=== PATIENT | female | born 1960 | race Caucasian/White ===

== ENCOUNTER 2018-01-23 20:38 | Emergency (ER) | payer OTHER ==
[2018-01-23] MEDS ORDERED: HYDROmorphONE/DILAUDID 2 MG/ML INJ IVP ONE (21:01)
[2018-01-23] MEDS ORDERED: NS 1,000 ML IV ONE (21:01)
[2018-01-23] MEDS ORDERED: HYDROmorphONE/DILAUDID 1 MG/ML INJ ONE (21:04)
--- NOTE | 2018-01-23 21:25 | CPEKG ---
Heart Rate: 57 RR Interval: 1053 P-R Interval: 132 QRSD Interval: 90 QT Interval: 428 QTC Interval: 417 P [place]: 29 QRS [place]: 68 T Wave [place]: 36 EKG Severity - NORMAL ECG - EKG Impression: SINUS RHYTHM Electronically Signed By: Juana Brooks 23-Jan-2018 23:31:51
[2018-01-23 21:34] LABS: PLATELET COUNT 307 10^3/uL (150-400)
[2018-01-23] MEDS ORDERED: ONDANSETRON 4 MG/2 ML VIAL IVP ONE (23:27)
[2018-01-23] MEDS ORDERED: ONDANSETRON 4 MG/2 ML VIAL ONE (23:28)
[2018-01-23] MEDS ORDERED: DICYCLOMINE 10 MG CAP PO ONE (23:28)
[2018-01-23] MEDS ORDERED: KETOROLAC 30 MG/1 ML SDV IVP ONE (23:31)
[2018-01-23 23:37] VITALS: BP 123/77
--- NOTE | 2018-01-24 00:21 | EDPHY ---
H & P Stated Complaint: epigastric pain - Personal History Current Tetanus/Diphtheria Vaccine: Unsure Current Tetanus Diphtheria and Acellular Pertussis (TDAP): Unsure Tetanus Vaccine Date: within 10 years - Medical/Surgical History Hx Asthma: No Hx Chronic Respiratory Disease: No Hx Diabetes: No Hx Cardiac Disease: No Hx Renal Disease: No Hx Cirrhosis: No Hx Alcoholism: No Hx HIV/AIDS: No Hx Splenectomy or Spleen Trauma: No Other PMH: denies. surg-Lt. wrist, neck surg to remove growth - Social History Smoking Status: Never smoked Time Seen by Provider: 01/23/18 20:55 HPI/ROS: Chief complaint: Abdominal pain History of present illness: This is a 57-year-old female who presents to the emergency department for evaluation of abdominal pain. She reports she has a long history of mild chronic abdominal pain in the epigastric and right upper quadrant. It has been a persistent soreness she has had for years. However, over the last day the soreness has worsened. She states the pain radiates to her back. She denies precipitating factors. She denies alleviating factors. She does report associated loose stools. She denies other associated signs or symptoms including no fevers, no nausea, vomiting, no urinary symptoms, no chest pain, cough or shortness of breath. Review of systems: A 10 point review of systems was obtained and other than described above was negative (Gómez Liao) - Physical Exam Exam: General Appearance: Alert, nontoxic. Eyes: Pupils equal and round no pallor or injection. ENT, Mouth: Mucous membranes moist. Respiratory: There are no retractions, lungs are clear to auscultation. Cardiovascular: Regular rate and rhythm. Gastrointestinal: Bowel sounds are normal. Abdomen is soft, nondistended. Mild tenderness in epigastric and right upper quadrant. No Martínez sign. No McBurney's point tenderness. No guarding. No other peritoneal signs. Neurological: Alert and oriented x4. Strength and sensation intact and symmetrical. Skin: Warm and dry, no rashes. Musculoskeletal: Neck is supple non tender. Extremities are symmetrical, full range of motion. Psychiatric: Patient is oriented X 3, there is no agitation. (Gómez Liao) Constitutional: Initial Vital Signs Temperature (C) 36.6 C 01/23/18 20:39 Heart Rate 65 01/23/18 20:39 Respiratory Rate 16 01/23/18 20:39 Blood Pressure 114/71 01/23/18 20:39 O2 Sat (%) 98 01/23/18 20:39 O2 Delivery Mode Room Air O2 (L/minute) 98 Allergies/Adverse Reactions: No Known Allergies Allergy (Unverified 04/15/15 18:15) Home Medications: Medication Instructions Recorded NK [No Known Home Meds] 04/15/15 Medical Decision Making - Diagnostics Imaging: Discussed imaging studies w/ sales operations Radiologist ED Course/Re-evaluation: Patient is discussed with my secondary supervising physician Dr. Juana Brooks. Patient presents to the emergency department reporting increasing chronic abdominal pain in her epigastric and right upper quadrant. She is nontoxic. Vital signs are stable. Mild tenderness on abdominal exam otherwise unremarkable. Lab studies are unremarkable. Urinalysis does reveal a few findings concerning for infection although she denies any urinary symptoms. Certainly this could be contaminant. Urine cultures obtained. Ultrasound is suggestive of a stone in the neck of the gallbladder. She has been symptomatically treated with Dilaudid with improvement in pain but states she does not like the way the medication makes her feel. She has been treated with Toradol with improvement in pain. She was given Bentyl and placed on the right side as well as given Zofran. She is feeling much better. She is tolerating oral challenges. She will be discharged home. Home care is discussed. Return precautions are given. Patient voiced understanding and agreement with plan. ( Gómez Liao) The patient was evaluated and managed by the physician social worker assistant. I have reviewed this chart and I agree with the findings and plan of care as documented , as indicated by my signature. I am the secondary supervising physician. ( Juana Brooks) Differential Diagnosis: Included but not limited to gastritis, gastroenteritis, biliary tract disease, pancreatitis, colitis, urinary tract disease, unlikely pulmonary, or cardiac in nature (Gómez Liao) - Data Points Laboratory Results: Laboratory Results 01/23/18 20:56 01/23/18 20:56 Medications Given: Discontinued Medications Dicyclomine HCl (Bentyl) 10 mg PO EDNOW ONE Stop: 01/23/18 23:29 Last Admin: 01/23/18 23:32 Dose: 10 mg Hydromorphone HCl (Dilaudid) 0.5 mg IVP EDNOW ONE Stop: 06/01/18 21:02 Last Admin: 01/23/18 21:07 Dose: 0.5 mg Sodium Chloride (Ns) 1,000 mls @ 0 mls/hr IV EDNOW ONE; Wide Open PRN Reason: Protocol Stop: 01/23/18 21:02 Last Admin: 01/23/18 21:06 Dose: 1,000 mls Ketorolac Tromethamine (Toradol) 30 mg IVP EDNOW ONE Stop: 01/23/18 23:32 Last Admin: 01/23/18 23:35 Dose: 30 mg Ondansetron HCl (Zofran) 4 mg IVP EDNOW ONE Stop: 01/23/18 23:28 Last Admin: 01/23/18 23:31 Dose: 4 mg Departure - Departure Disposition: Home, Routine, Self-Care Clinical Impression: Abdominal pain Qualifiers: Abdominal location: right upper quadrant Qualified Code(s): R10.11 - Right upper quadrant pain Condition: Good Instructions: Acute Abdominal Pain (ED) Additional Instructions: Follow-up with a primary care doctor and surgeon for continued evaluation and care If symptoms worsen or new symptoms develop return to the emergency room for recheck Referrals: NONE *PRIMARY CARE P,. [Primary Care Provider] - As per Instructions [facility],. [Clinic] - As per Instructions Morgan Womack MD [Medical Doctor] - As per Instructions
== END 2018-01-24 00:32 | disposition home or self-care (01) ==
DX: R10.11 Right upper quadrant pain (principal); E86.9 Volume depletion, unspecified
CPT/HCPCS: 96374; J1170; J1885; J2405

== ENCOUNTER 2018-01-25 06:55 | Observation (INO) | payer OTHER ==
--- NOTE | 2018-01-25 07:18 | EDPHY ---
H & P Stated Complaint: Abd pain Time Seen by Provider: 01/25/18 07:18 - Personal History Current Tetanus Diphtheria and Acellular Pertussis (TDAP): Yes Tetanus Vaccine Date: within 10 years - Medical/Surgical History Hx Asthma: No Hx Chronic Respiratory Disease: No Hx Diabetes: No Hx Cardiac Disease: No Hx Renal Disease: No Hx Cirrhosis: No Hx Alcoholism: No Hx HIV/AIDS: No Hx Splenectomy or Spleen Trauma: No Other PMH: denies. surg-Lt. wrist, neck surg to remove growth - Social History Smoking Status: Never smoked Constitutional: Initial Vital Signs Temperature (C) 36.4 C 01/25/18 06:56 Heart Rate 57 L 01/25/18 06:56 Respiratory Rate 20 01/25/18 06:56 Blood Pressure 133/64 H 01/25/18 06:56 O2 Sat (%) 92 01/25/18 06:56 O2 Delivery Mode Room Air Allergies/Adverse Reactions: No Known Allergies Allergy (Verified 01/25/18 09:56) Home Medications: Medication Instructions Recorded NK [No Known Home Meds] 01/25/18 Medical Decision Making - Diagnostics Imaging Results: Imaging Impressions Abdomen Ultrasound 01/25/18 07:31 Impression: 1. Mild hepatic steatosis. 2. Suboptimal assessment of the pancreatic head secondary to overlying bowel gas. 3. There are a couple of tiny gallbladder polyps present. There is no convincing evidence of cholelithiasis. There is a positive sonographic Martínez sign, but no evidence of gallbladder wall thickening or pericholecystic fluid. If there is further clinical concern, a HIDA scan could be considered. Findings were discussed with Santiago Estes MD at 9:03, on 01/25/2018. Imaging: Discussed imaging studies w/ stabber Radiologist, I viewed and interpreted images myself ED Course/Re-evaluation: CHIEF COMPLAINT: Abdominal pain, nausea, vomiting HISTORY OF PRESENT ILLNESS: The patient is a 57 y/o female complaining of abdominal pain, nausea, and vomiting. On 01/23/18, 2 days ago, she was seen in this emergency department and diagnosed with a gallstone in the neck of the gallbladder. They discharged her home with an antispasmodic, which worked well until her pain returned last night. She is currently nauseous and has right upper quadrant pain. Denies chest pain, shortness of breath, urinary or bowel complaints, numbness, paresthesias. REVIEW OF SYSTEMS: A 10 point review of systems was performed and is negative with the exception of the elements mentioned in the history of present illness. PHYSICAL EXAM: HR, BP, O2 Sat, RR. Temp noted General Appearance: Alert, well hydrated, appropriate, and non-toxic appearing. Head: Atraumatic without scalp tenderness or obvious injury Eyes: Pupils equal, round, reactive to light and accommodation, EOMI, no trauma , no injection. Ears: Clear bilaterally, no perforation, normal landmarks Nose: Atraumatic, no rhinorrhea, clear. Throat: Mucus membranes moist. Neck: Supple, nontender, no lymphadenopathy. Respiratory: No retractions, no distress, no wheezes, and no accessory muscle use. Lungs are clear to auscultation bilaterally. Cardiovascular: Regular rate and rhythm, no murmurs, rubs, or gallops. Good capillary refill all extremities. Gastrointestinal: Positive Martínez's sign. Abdomen is soft, non-distended, no masses, no rebound, no guarding, no peritoneal signs. Musculoskeletal: Normal active ROM of all extremities, atraumatic. Neurological: Alert, appropriate, and interactive. Nonfocal neuro. Skin: No rashes, good turgor, no nodules on palpation. Past medical history: Gallstones Past surgical history: Left wrist surgery, neck surgery Family history: Denies Social history: at bedside, lives in [place], employed DIAGNOSTICS/PROCEDURES/CRITICAL CARE TIME: Gallbladder US: Possible gallstone, polyp or sludge in the neck of the gallbladder. DIFFERENTIAL DIAGNOSIS: The differential diagnosis for the patient's abdominal pain included but was not limited to ovarian cyst, pelvic inflammatory disease, ovarian torsion, urinary tract infection, ectopic , cholecystitis, and appendicitis. MEDICAL DECISION MAKING: The patient is a 57 y/o female presenting with abdominal pain, nausea, and vomiting. On 01/23/18, 2 days ago, she was seen in this emergency department and diagnosed with a possible gallstone in the neck of the gallbladder. On her physical exam she has a positive Martínez's sign. Gallbladder US ordered; 1L IV NS , 30mg IV Toradol, 4mg IV Zofran, and 0.5mg IV Dilaudid administered. 0800: Patient's labs are normal, imaging is still pending at this time. 0904: Spoke with Dr. Chavez, radiologist, there is evidence of a possible gallstone, polyp or sludge in the neck of the gallbladder. General surgery will be called to discuss a cholecystectomy; patient is comfortable with plan for surgery. 0909: Consulted with Dr. Aguilar, general surgeon, regarding this patient. He agrees to consult on this patient as the primary physician and take her to the OR for a cholecystectomy. 0932: Reassessed patient and discussed laboratory and imaging findings. - Data Points Laboratory Results: Laboratory Results 01/25/18 07:28 01/25/18 07:28 01/25/18 01/25/18 01/25/18 09:20 07:28 07:28 WBC RBC Hgb Hct MCV MCH MCHC RDW Plt Count MPV Neut % (Auto) Lymph % (Auto) [place] % (Auto) Eos % (Auto) Baso % (Auto) Nucleat RBC Rel Count Absolute Neuts (auto) Absolute Lymphs (auto) Absolute Monos (auto) Absolute Eos (auto) Absolute Basos (auto) Absolute Nucleated RBC Immature Gran % Immature Gran # PT 13.0 SEC SEC (12.0-15.0) INR 0.96 (0.83-1.16) APTT 25.2 SEC SEC (23.0-38.0) Sodium 144 mEq/L mEq/L (135-145) Potassium 4.6 mEq/L mEq/L (3.3-5.0) Chloride 106 mEq/L mEq/L (97-110) Carbon Dioxide 29 mEq/l mEq/l (22-31) Anion Gap 9 mEq/L mEq/L (8-16) BUN 18 mg/dL mg/dL (7-23) Creatinine 0.7 mg/dL mg/dL (0.6-1.0) Estimated GFR > 60 Glucose 98 mg/dL mg/dL (70-100) Calcium 9.6 mg/dL mg/dL (8.5-10.4) Total Bilirubin 0.8 mg/dL mg/dL (0.1-1.4) Conjugated Bilirubin 0.4 mg/dL mg/dL (0.0-0.5) Unconjugated Bilirubin 0.4 mg/dL mg/dL (0.0-1.1) AST 30 IU/L IU/L (14-46) ALT 41 IU/L IU/L (9-52) Alkaline Phosphatase 58 IU/L IU/L (38-126) Total Protein 7.0 g/dL g/dL (6.3-8.2) Albumin 4.1 g/dL g/dL (3.5-5.0) Lipase 139 IU/L IU/L (23-300) Urine Color YELLOW Urine Appearance CLEAR Urine pH 5.0 (5.0-7.5) Ur Specific [place] 1.016 (1.002-1.030) Urine Protein NEGATIVE (NEGATIVE) Urine Ketones NEGATIVE (NEGATIVE) Urine Blood 1+ H (NEGATIVE) Urine Nitrate NEGATIVE (NEGATIVE) Urine Bilirubin NEGATIVE (NEGATIVE) Urine Urobilinogen NEGATIVE EU EU (0.2-1.0) Ur Leukocyte Esterase NEGATIVE (NEGATIVE) Urine RBC 1-3 /hpf /hpf (0-3) Urine WBC 3-5 /hpf H /hpf (0-3) Ur Epithelial Cells TRACE /lpf /lpf (NONE-1+) Urine Mucus TRACE /lpf /lpf (NONE-1+) Urine Glucose NEGATIVE (NEGATIVE) 01/25/18 07:28 WBC 5.46 10^3/uL 10^3/uL (3.80-9.50) RBC 4.51 10^6/uL 10^6/uL (4.18-5.33) Hgb 13.7 g/dL g/dL (12.6-16.3) Hct 41.9 % % (38.0-47.0) MCV 92.9 fL fL (81.5-99.8) MCH 30.4 pg pg (27.9-34.1) MCHC 32.7 g/dL g/dL (32.4-36.7) RDW 12.9 % % (11.5-15.2) Plt Count 257 10^3/uL 10^3/uL (150-400) MPV 9.9 fL fL (8.7-11.7) Neut % (Auto) 63.0 % % (39.3-74.2) Lymph % (Auto) 28.4 % % (15.0-45.0) [place] % (Auto) 7.1 % % (4.5-13.0) Eos % (Auto) 1.1 % % (0.6-7.6) Baso % (Auto) 0.2 % L % (0.3-1.7) Nucleat RBC Rel Count 0.0 % % (0.0-0.2) Absolute Neuts (auto) 3.44 10^3/uL 10^3/uL (1.70-6.50) Absolute Lymphs (auto) 1.55 10^3/uL 10^3/uL (1.00-3.00) Absolute Monos (auto) 0.39 10^3/uL 10^3/uL (0.30-0.80) Absolute Eos (auto) 0.06 10^3/uL 10^3/uL (0.03-0.40) Absolute Basos (auto) 0.01 10^3/uL L 10^3/uL (0.02-0.10) Absolute Nucleated RBC 0.00 10^3/uL 10^3/uL (0-0.01) Immature Gran % 0.2 % % (0.0-1.1) Immature Gran # 0.01 10^3/uL 10^3/uL (0.00-0.10) PT INR APTT Sodium Potassium Chloride Carbon Dioxide Anion Gap BUN Creatinine Estimated GFR Glucose Calcium Total Bilirubin Conjugated Bilirubin Unconjugated Bilirubin AST ALT Alkaline Phosphatase Total Protein Albumin Lipase Urine Color Urine Appearance Urine pH Ur Specific [place] Urine Protein Urine Ketones Urine Blood Urine Nitrate Urine Bilirubin Urine Urobilinogen Ur Leukocyte Esterase Urine RBC Urine WBC Ur Epithelial Cells Urine Mucus Urine Glucose Medications Given: Discontinued Medications Hydromorphone HCl (Dilaudid) 0.5 mg IVP EDNOW ONE Stop: 01/25/18 07:26 Last Admin: 01/25/18 07:31 Dose: 0.5 mg Sodium Chloride (Ns) 1,000 mls @ 0 mls/hr IV EDNOW ONE; Wide Open PRN Reason: Protocol Stop: 01/25/18 07:26 Last Admin: 01/25/18 07:30 Dose: 1,000 mls Ketorolac Tromethamine (Toradol) 30 mg IVP EDNOW ONE Stop: 01/25/18 07:26 Last Admin: 01/25/18 07:30 Dose: 30 mg Ondansetron HCl (Zofran) 4 mg IVP EDNOW ONE Stop: 01/25/18 07:26 Last Admin: 01/25/18 07:30 Dose: 4 mg Departure - Departure Disposition: To OP Cath/Surgery Clinical Impression: Gallstone Qualifiers: Cholecystitis presence: with cholecystitis Cholecystitis acuity: acute Biliary obstruction: without biliary obstruction Qualified Code(s): K80.00 - Calculus of gallbladder with acute cholecystitis without obstruction Condition: Fair Referrals: NONE *PRIMARY CARE P,. [Primary Care Provider] - As per Instructions Report Scribed for: Santiago Estes Report Scribed by: Nadia Ricketts Date of Report: 01/25/18 Time of Report: 07:24
[2018-01-25] MEDS ORDERED: NS 1,000 ML IV ONE (07:25)
[2018-01-25] MEDS ORDERED: HYDROmorphONE/DILAUDID 2 MG/ML INJ IVP ONE (07:25)
[2018-01-25] MEDS ORDERED: ONDANSETRON 4 MG/2 ML VIAL ONE (07:25)
[2018-01-25] MEDS ORDERED: KETOROLAC 30 MG/1 ML SDV IVP ONE (07:25)
[2018-01-25] MEDS ORDERED: ONDANSETRON 4 MG/2 ML VIAL IVP ONE (07:25)
[2018-01-25] MEDS ORDERED: HYDROmorphONE/DILAUDID 1 MG/ML INJ ONE (07:29)
[2018-01-25 07:34] LABS: PLATELET COUNT 257 10^3/uL (150-400)
[2018-01-25 07:42] LABS: INR 0.96 (0.83-1.16)
[2018-01-25] MEDS ORDERED: BUPIVACAINE 0.25% 30 ML SDV ONE (11:00)
[2018-01-25] MEDS ORDERED: EPINEPHrine 1 MG/ML INJ ONE (11:01)
[2018-01-25] MEDS ORDERED: ceFAZolin 2 GM/SWFI 2 GM/20 ML SYR IVP ONE (11:07)
--- NOTE | 2018-01-25 11:11 | PDGENHP ---
History and Physical - Chief Complaint RUQ pain - History of Present Illness Patient her Ricardo for first episode of RUQ pain. Had workup at that time which showed likely polyp adjacent to cystic duct. Was medicated here, discharged home and still didn'd feel too well. Pain this AM after getting up, worse than initial pain. Pain is RUQ, epigastric with radiation to marnie back 9/10 at its worst, better with narcotics. No nausea, no fevers. History Information - Allergies/Home Medication List Allergies/Adverse Reactions: No Known Allergies Allergy (Verified 01/25/18 09:56) Home Medications: NK [No Known Home Meds] 01/25/18 [Last Taken Unknown] I have personally reviewed and updated: family history, medical history, social history, surgical history - Past Medical History no pertinent PMH - Surgical History Additional surgical history: no abdominal surgeries - Social History Smoking Status: Never smoked Alcohol Use: Rarely Drug Use: None Additional social history: teacher, ultra-marathoner Review of Systems Review of Systems: ROS: 10pt was reviewed & negative except for what was stated in HPI & below Physical Exam Physical Exam: Temp Pulse Resp BP Pulse Ox 37.2 C 64 16 106/64 92 01/25/18 10:50 01/25/18 10:50 01/25/18 10:50 01/25/18 10:50 01/25/18 10:50 Constitutional: no apparent distress, appears nourished, not in pain Eyes: PERRL, anicteric sclera, EOMI Ears, Nose, Mouth, Throat: moist mucous membranes, hearing normal, ears appear normal, no oral mucosal ulcers Cardiovascular: regular rate and rhythym, no murmur, rub, or gallop, No edema Respiratory: no respiratory distress, no rales or rhonchi, clear to auscultation Gastrointestinal: normoactive bowel sounds, other (TTP in the RUQ, negative [place]) Genitourinary: no bladder fullness, no bladder tenderness Skin: warm, normal color, no rashes or abrasions, no fluctuance, no induration, No mottled Musculoskeletal: full muscle strength, no muscle tenderness, normal joint ROM, no joint effusions Psychiatric: interacting appropriately, not anxious, not encephalopathic, thought process linear Lymph, Heme, Immunologic: no cervical LAD, no supraclavicular LAD Lab Data & Imaging Review 01/25/18 07:28 01/25/18 07:28 WBC 5.46 10^3/uL (3.80-9.50) 01/25/18 07:28 RBC 4.51 10^6/uL (4.18-5.33) 01/25/18 07:28 Hgb 13.7 g/dL (12.6-16.3) 01/25/18 07:28 Hct 41.9 % (38.0-47.0) 01/25/18 07:28 MCV 92.9 fL (81.5-99.8) 01/25/18 07:28 MCH 30.4 pg (27.9-34.1) 01/25/18 07:28 MCHC 32.7 g/dL (32.4-36.7) 01/25/18 07:28 RDW 12.9 % (11.5-15.2) 01/25/18 07:28 Plt Count 257 10^3/uL (150-400) 01/25/18 07:28 MPV 9.9 fL (8.7-11.7) 01/25/18 07:28 Neut % (Auto) 63.0 % (39.3-74.2) 01/25/18 07:28 Lymph % (Auto) 28.4 % (15.0-45.0) 01/25/18 07:28 [place] % (Auto) 7.1 % (4.5-13.0) 01/25/18 07:28 Eos % (Auto) 1.1 % (0.6-7.6) 01/25/18 07:28 Baso % (Auto) 0.2 % (0.3-1.7) L 01/25/18 07:28 Nucleat RBC Rel Count 0.0 % (0.0-0.2) 01/25/18 07:28 Absolute Neuts (auto) 3.44 10^3/uL (1.70-6.50) 01/25/18 07:28 Absolute Lymphs (auto) 1.55 10^3/uL (1.00-3.00) 01/25/18 07:28 Absolute Monos (auto) 0.39 10^3/uL (0.30-0.80) 01/25/18 07:28 Absolute Eos (auto) 0.06 10^3/uL (0.03-0.40) 01/25/18 07:28 Absolute Basos (auto) 0.01 10^3/uL (0.02-0.10) L 01/25/18 07:28 Absolute Nucleated RBC 0.00 10^3/uL (0-0.01) 01/25/18 07:28 Immature Gran % 0.2 % (0.0-1.1) 01/25/18 07:28 Immature Gran # 0.01 10^3/uL (0.00-0.10) 01/25/18 07:28 PT 13.0 SEC (12.0-15.0) 01/25/18 07:28 INR 0.96 (0.83-1.16) 01/25/18 07:28 APTT 25.2 SEC (23.0-38.0) 01/25/18 07:28 Sodium 144 mEq/L (135-145) 01/25/18 07:28 Potassium 4.6 mEq/L (3.3-5.0) 01/25/18 07:28 Chloride 106 mEq/L (97-110) 01/25/18 07:28 Carbon Dioxide 29 mEq/l (22-31) 01/25/18 07:28 Anion Gap 9 mEq/L (8-16) 01/25/18 07:28 BUN 18 mg/dL (7-23) 01/25/18 07:28 Creatinine 0.7 mg/dL (0.6-1.0) 01/25/18 07:28 Estimated GFR > 60 01/25/18 07:28 Glucose 98 mg/dL (70-100) 01/25/18 07:28 Calcium 9.6 mg/dL (8.5-10.4) 01/25/18 07:28 Total Bilirubin 0.8 mg/dL (0.1-1.4) 01/25/18 07:28 Conjugated Bilirubin 0.4 mg/dL (0.0-0.5) 01/25/18 07:28 Unconjugated Bilirubin 0.4 mg/dL (0.0-1.1) 01/25/18 07:28 AST 30 IU/L (14-46) 01/25/18 07:28 ALT 41 IU/L (9-52) 01/25/18 07:28 Alkaline Phosphatase 58 IU/L (38-126) 01/25/18 07:28 Total Protein 7.0 g/dL (6.3-8.2) 01/25/18 07:28 Albumin 4.1 g/dL (3.5-5.0) 01/25/18 07:28 Lipase 139 IU/L (23-300) 01/25/18 07:28 Urine Color YELLOW 01/25/18 09:20 Urine Appearance CLEAR 01/25/18 09:20 Urine pH 5.0 (5.0-7.5) 01/25/18 09:20 Ur Specific [place] 1.016 (1.002-1.030) 01/25/18 09:20 Urine Protein NEGATIVE (NEGATIVE) 01/25/18 09:20 Urine Ketones NEGATIVE (NEGATIVE) 01/25/18 09:20 Urine Blood 1+ (NEGATIVE) H 01/25/18 09:20 Urine Nitrate NEGATIVE (NEGATIVE) 01/25/18 09:20 Urine Bilirubin NEGATIVE (NEGATIVE) 01/25/18 09:20 Urine Urobilinogen NEGATIVE EU (0.2-1.0) 01/25/18 09:20 Ur Leukocyte Esterase NEGATIVE (NEGATIVE) 01/25/18 09:20 Urine RBC 1-3 /hpf (0-3) 01/25/18 09:20 Urine WBC 3-5 /hpf (0-3) H 01/25/18 09:20 Ur Epithelial Cells TRACE /lpf (NONE-1+) 01/25/18 09:20 Urine Mucus TRACE /lpf (NONE-1+) 01/25/18 09:20 Urine Glucose NEGATIVE (NEGATIVE) 01/25/18 09:20 Visualized and Interpreted imaging results: Yes Interpretation: US: stone vs polyp adjacent to cystic duct takeoff. no PCF, normal GBW Assessment & Plan Assessment: Gallstone (Acute) Plan: 57yo female with clinical cholecystitis, no secondary signs - given persistence of pain, my rec was for OR. She is in agreement. - To OR for lap kayy, RBA discussed.
--- NOTE | 2018-01-25 11:20 | PDANEPAE ---
ANE Past Medical History - Pulmonary History Hx Oxygen in Use at Home: No Hx Sleep Apnea: No - Endocrine History Hx Diabetes: No ANE Review of Systems Review of Systems: ANE Patient History - Allergies Allergies/Adverse Reactions: No Known Allergies Allergy (Verified 01/25/18 09:56) - Home Medications Home Medications: NK [No Known Home Meds] 01/25/18 [Last Taken Unknown] - NPO status NPO Since - Liquids (Date): 01/25/18 NPO Since - Liquids (Time): 07:00 NPO Since - Solids (Date): 01/24/18 - Smoking Hx Smoking Status: Never smoked - Alcohol Use Alcohol Use: Rarely ANE Labs/Vital Signs - Labs Result Diagrams: 01/25/18 07:28 01/25/18 07:28 - Vital Signs Blood Pressure: 106/64 Heart Rate: 64 Respiratory Rate: 16 O2 Sat (%): 92 Height: 165.1 cm Weight: 58.967 kg ANE Physical Exam - Airway Mallampati Score: Class 2 - ASA Status ASA Status: I, E
[2018-01-25] MEDS ORDERED: SCOPOLAMINE HYDROBROMIDE 1 MG/3 DAYS PATCH TD ONE (11:23)
[2018-01-25] MEDS ORDERED: CEFAZOLIN 2 GM/DEXTROSE/100 ML BAG IV ONE (11:24)
[2018-01-25] MEDS ORDERED: fentaNYL 100 MCG/2 ML INJ ONE (11:25)
[2018-01-25] MEDS ORDERED: MIDAZOLAM 2 MG/2 ML VIAL ONE (11:25)
[2018-01-25] MEDS ORDERED: PROPOFOL 200 MG/20 ML VIAL ONE (11:25)
[2018-01-25] MEDS ORDERED: ROCURONIUM 50 MG/5 ML VIAL ONE (11:27)
[2018-01-25] MEDS ORDERED: DEXAMETHASONE 4 MG/ML VIAL ONE ×2 (11:27)
[2018-01-25] MEDS ORDERED: METOCLOPRAMIDE 10 MG/2 ML VIAL ONE (11:27)
[2018-01-25] MEDS ORDERED: SCOPOLAMINE HYDROBROMIDE 1 MG/3 DAYS PATCH TD SCH (11:30)
[2018-01-25] MEDS ORDERED: ceFAZolin 2 GM/DEXTROSE 100 ML IV ONE (11:30)
[2018-01-25] MEDS ORDERED: SUGAMMADEX SODIUM 200 MG/2 ML VIAL IVP ONE (12:17)
[2018-01-25] MEDS ORDERED: ONDANSETRON 4 MG/2 ML VIAL IVP PRN (12:41)
[2018-01-25] MEDS ORDERED: fentaNYL 100 MCG/2 ML INJ IVP PRN (12:41)
[2018-01-25] MEDS ORDERED: PROMETHAZINE HCL 25 MG/ML INJ IVP PRN (12:41)
[2018-01-25] MEDS ORDERED: oxyCODONE IR 5 MG TAB PO PRN (12:41)
[2018-01-25] MEDS ORDERED: NALOXONE HCL 0.4 MG/ML INJ IVP PRN (12:41)
[2018-01-25] MEDS ORDERED: ACETAMINOPHEN 325 MG TAB PO PRN (12:41)
[2018-01-25] MEDS ORDERED: HYDROmorphONE/DILAUDID 1 MG/ML INJ IVP PRN (12:41)
--- NOTE | 2018-01-25 12:41 | POSTOPPROG ---
Post Op Note Date of Operation: 01/25/18 Surgeon: Jacek Aguilar Anesthesiologist: Tello Anesthesia: GET(General Endotracheal) Pre-op Diagnosis: cholecystitis Post-op Diagnosis: acute on chronic cholecystitis Indication: pain Procedure: Lap kayy Findings: edematous wall, critical view obtained Inf/Abcess present in the surg proc area at time of surgery?: No EBL: Minimal Total fluids administered: 500cc Ns washout Specimen(s): GB
--- NOTE | 2018-01-25 12:43 | POSTANESTH ---
Post Anesthetic Evaluation Cardiovascular Status: Normal, Stable Respiratory Status: Normal, Stable Level of Consciousness/Mental Status: Can Participate in Eval Pain Control: Adequate, Prn Tx Ordered Nausea/Vomiting Control: Adequate, Prn Tx Ordered Complications Possibly Related to Anesthesia: None Noted
[2018-01-25] MEDS ORDERED: D5W 1/2 NS W/ 20 KCl/L 1,000 ML IV SCH (12:45)
[2018-01-25] MEDS: IBUPROFEN 600 MG TAB PO SCH ×2 (14:46→18:20)
--- NOTE | 2018-01-25 15:16 | GOP ---
[f rep st] OPERATIVE REPORT DATE OF OPERATION: 01/25/2018 SURGEON: Jacek Aguilar MD SENIOR ACCOUNT DIRECTOR: None. ANESTHESIA: General endotracheal Dr. Javed. PREOPERATIVE DIAGNOSIS: Cholecystitis. POSTOPERATIVE DIAGNOSIS: Acute on chronic cholecystitis, umbilical hernia containing pre-peritoneal fat. PROCEDURE PERFORMED: 1) Laparoscopic cholecystectomy. 2) Open primary umbilical hernia repair FINDINGS: Multiple adhesions to the first portion of the duodenum and stomach successfully taken down. Edematous gallbladder wall. Critical view obtained. SPECIMENS: Gallbladder. ESTIMATED BLOOD LOSS: 10 cc. DESCRIPTION OF PROCEDURE: The patient was greeted in the preoperative suite. Once again, risks, benefits, and alternatives were discussed. Consent was signed. She was then brought back to the operative suite, placed on the OR table in supine position. After all anesthesia machines, including SCDs were on and functioning, a [employer] time-out was performed. After successful induction of general anesthesia, the patient's abdomen was prepped and draped in the typical sterile fashion. I entered the abdomen via an infraumbilical cutdown. The patient's umbilical hernia was successfully reduced. The fascial edges were cleaned. Through this , I inserted the 12 mm Visiport and successfully achieved pneumoperitoneum to 15 mmHg, which was well tolerated by the patient. Through this, I inserted my laparoscoped. I inserted 3 additional 5 mm trocars, 1 in the subxiphoid, 2 in the right upper quadrant, all under direct visualization. I successfully retracted the gallbladder over the ledge of the liver. She had multiple adhesions to the first portion of the duodenum and stomach, which were taken down with blunt dissection. Dissection at the infundibulum identified 2 and only 2 structures leading toward the gallbladder. The cystic artery and cystic duct were doubly clipped and divided. The gallbladder was then taken off the liver bed with electrocautery. It was placed in an EndoCatch bag and removed. The right upper quadrant was then visualized. All clip sites were noted to be in appropriate position and hemostatic. I irrigated the right upper quadrant with warm normal saline noting clear effluent in the suction canister. Local anesthesia was then infiltrated into all port sites. Pneumoperitoneum was then evacuated. I then turned my attention toward fixing the patient's umbilical hernia. Again , the fascial edges were cleaned using multiple interrupted 0 Surgilon sutures. I successfully reapproximated the fascia under minimal tension. Local anesthesia was infiltrated into this. I then reapproximated the patient's umbilicus with an interrupted 3-0 Vicryl stitch. I closed all skin with 4-0 Monocryl over which Dermabond was placed. The patient was then extubated in the operative suite and taken to the PACU in satisfactory condition. DRAINS: None. COUNTS: All counts were reported as correct x2. /[id number]/MODL MTDD
[2018-01-25 16:24] VITALS: BP 116/72
--- NOTE | 2018-01-25 17:15 | PDDCSUM ---
Discharge Summary Discharge Summary: DISCHARGE SUMMARY Date of Admission January 25 Date of Discharge January 25 DISCHARGE DIAGNOSES -cholecystitis -umbilical hernia HOSPITAL COURSE The patient was admitted from the ED and taken to the operating room where they underwent an uneventful laparoscopic cholecystectomy and open umbilical hernia repair. They were subsequently taken to the PACU and then the general medical floor. The hospital course was uneventful, their diet was advanced to a regular diet which was well tolerated and their pain was well controlled. They were discharged home in stable condition on the evening of the 3rd DISCHARGE MEDICATIONS Zofran ODT, oxycodone as needed for pain DISPOSITION Home FOLLOW UP Follow up with me in the office in 10-14 days for a general post-operative visit
== END 2018-01-25 18:47 | disposition home or self-care (01) ==
LOC: F1N 13:53
PROVIDERS: ADMIT Surgery; ATTEND Surgery
PROC: 0WQF0ZZ Repair Abdominal Wall, Open Approach (ICD-10-PCS; principal; 2018-01-25 11:30)
PROC: 0FT44ZZ Resection of Gallbladder, Percutaneous Endoscopic Approach (ICD-10-PCS; principal; 2018-01-25 11:30)
DX: K81.9 Cholecystitis, unspecified (principal); K42.9 Umbilical hernia without obstruction or gangrene
CPT/HCPCS: 47562; 49585; 76705; G0378; J0171; J0690; J1100; J1170; J1885; J2250; J2405; J2704; J2765; J3010